=== PATIENT | female | born 1940 | race Caucasian/White ===

== ENCOUNTER 2016-09-29 11:04 | Observation (INO) ==
[2016-09-29] MEDS ORDERED: Ondansetron ODT 4 MG TAB.RAPDIS SL ONE (11:40)
[2016-09-29] MEDS ORDERED: 0.9 % Sodium Chloride 1,000 ML IVC ONE (11:47)
[2016-09-29] MEDS ORDERED: Ondansetron 4 MG/2 ML VIAL IVP ONE (11:53)
--- NOTE | 2016-09-29 11:53 | Emergency Department Note ---
Disposition Clinical Impression: Confusion, Dizziness UTI (urinary tract infection) Qualifiers: Urinary tract infection type: acute cystitis Hematuria presence: without hematuria Qualified Code(s): N30.00 - Acute cystitis without hematuria Disposition: Home, Self-Care Condition: Good Time of Disposition: 16:48 General Adult HPI - General Chief complaint: ED Dizziness Stated complaint: N/V dizziness Time Seen by Provider: 09/29/16 11:19 Source: patient Limitations: no limitations Nursing Notes Reviewed: Yes Vital Signs Reviewed: Yes - History of Present Illness HPI Narrative: Patient states this morning she got up went to the bathroom came back inside on her bed and noticed that she was dizzy. She describes dizziness as feeling like she is going to pass out. She has no other complaints at this time. Denies any chest pain or shortness of breath. Pain Scale: 0 - Related Data Allergies Allergy/AdvReac Type Severity Reaction Status Date / Time No Known Allergies Allergy Verified 09/29/16 11:16 All systems ED: reviewed and negative except as stated. Constitutional: Denies: fever, chills Cardiovascular: Denies: chest pain, palpitations, dyspnea on exertion, syncope Respiratory: Denies: cough, dyspnea, wheezes Gastrointestinal: Denies: abdominal pain, nausea, vomiting, diarrhea, hematemesis, melena, hematochezia Genitourinary: Denies: urgency, dysuria, frequency, hematuria Musculoskeletal: Denies: back pain, neck pain Integumentary: Denies: rash, abrasion Neurological: Reports: vertigo, other (Feels like she is going to pass out.). Denies: headache, weakness Past Medical History - Past Medical History Attestation: Yes The following information was validated with the patient. Medical history: Reports: hyperlipidemia, hypertension Psychiatric history: Reports: no psych history - Social History Smoking Status: Never smoker Smokeless Tobacco Status: No Alcohol use: Reports: occasionally Drug use: Reports: none Physical Exam - General Limitations: no limitations General appearance: alert, in no apparent distress - Head Head exam: atraumatic, normocephalic, normal inspection - Eye Eye exam: Present: normal appearance, PERRL, EOMI. Absent: scleral icterus - ENT ENT exam: normal exam, normal oropharynx, mucous membranes moist - Neck Neck exam: Present: normal inspection, full ROM, trachea midline. Absent: tenderness, meningismus, lymphadenopathy - Chest Chest inspection: Present: normal inspection, symmetric chest wall rise. Absent : tenderness - Respiratory Respiratory exam: Present: normal lung sounds bilaterally. Absent: respiratory distress - Cardiovascular Cardiovascular exam: Present: regular rate, normal rhythm, normal heart sounds - Abdominal Exam Abdominal exam: Present: soft, Non-Tender, normal bowel sounds - Extremities Exam Extremities exam: Present: normal inspection, full ROM, normal capillary refill. Absent: tenderness, pedal edema - Back Exam Back exam: Present: normal inspection, full ROM. Absent: tenderness, CVA tenderness (R), CVA tenderness (L) - Neurological Exam Neurological exam: Present: alert, CN II-XII intact, other (Slightly confused). Absent: motor sensory deficit - Psychiatric Psychiatric exam: Present: normal affect, normal mood - Skin Skin exam: Present: warm, dry, intact, normal color. Absent: rash, cyanosis, diaphoresis Course Course Narrative: Patient reporting dizziness since this morning. She states that she got up out of bed and was in her closet went to the bathroom when she got up and came back and sat down on her bed she is very dizzy. She describes the dizzy sensation as being lightheaded. She denies the room spinning. She denies any shortness of breath or chest pain. She does report nausea and vomiting. She is diaphoretic at this time. She is not very conversational on exam. Lung sounds are clear heart sounds are normal. Her abdomen is soft and nontender. I do not appreciate any edema to her extremities. Patient has a history of angioplasty several years ago. We will give patient a fluid bolus and get a kylpf-eg-rvel glucose she is here. We will also get an EKG and scan her head family advises increasing confusion over the past week. They stated that she does have a history of forgetfulness but it seems to be worse. We also get labs. - Reevaluation(s) Reevaluation #1: Patient reassessed. She is sleeping comfortably in bed. I am able to speak with the daughter at this time. The daughter says over the past 2 years patient and the patient's had become increasingly confused. She states there is no formal diagnosis of dementia or Alzheimer's. She states that now she is able to think about it yesterday she thinks the patient may have gotten warm. States she has not been handling heat very well recently. She is concerned this is possibly the reason for her increased confusion and dizziness today. Daughter states that she has noticed that today she is changed her story 3 times with different providers in the room. We are still waiting on a UA. Her head CT was normal her chest x-ray was normal. Her lab work is basically normal. Time: 13:58 Reevaluation #2: Patient has a UTI. We will treat her for this. We will admit for increased confusion UTI and dizziness. Patient and family are agreeable to this. Time: 16:47 - Consultations Consultation #1: Dr. Butt accepted patient in stable condition. Time: 15:59 Vital Signs Temperature 97.4 F L 09/29/16 11:13 Pulse Rate 112 09/29/16 11:13 Respiratory Rate 18 09/29/16 11:13 Blood Pressure 152/105 09/29/16 11:13 O2 Sat by Pulse Oximetry 96 09/29/16 11:13 Temperature 97.4 F L 09/29/16 11:13 Pulse Rate 68 09/29/16 15:13 Respiratory Rate 16 09/29/16 15:13 Blood Pressure 142/75 09/29/16 15:13 O2 Sat by Pulse Oximetry 96 09/29/16 15:13 Oxygen Delivery Oxygen Delivery Room Air Medical Decision Making - Medical Records Medical records reviewed: Yes I reviewed the patient's medical records. - Lab Data Lab results reviewed: Yes I reviewed the patient's lab results. Result diagrams: 09/29/16 11:59 09/29/16 11:59 Lab Results 09/29/16 09/29/16 09/29/16 Range/Units 11:57 11:59 11:59 WBC 5.6 (4.3-11.1) K/mcL RBC 4.75 (3.82-4.97) M/mcL Hgb 15.2 (11.5-15.4) g/dL Hct 44.4 (35.3-44.9) % MCV 93.5 (83.0-100.0) fL MCH 32.0 (28.0-33.3) pg MCHC 34.2 (31.6-35.5) g/dL RDW 12.0 (11.5-14.5) % Plt Count 198 (140-400) K/mcL MPV 9.5 (9.4-12.4) fL Immature Gran % 0.4 (0-4) % Seg Neutrophils % 81.0 % Lymphocytes % 11.4 % Monocytes % 6.2 % Eosinophils % 0.5 % Basophils % 0.5 % Neutrophils # 4.6 (1.6-8.9) K/mcL Lymphocytes # 0.6 (0.6-4.6) K/mcL Monocytes # 0.4 (0.0-1.3) K/mcL Eosinophils # 0.0 (0.0-0.6) K/mcL Basophils # 0.0 (0.0-0.2) K/mcL Sodium 139 (136-145) mEq/L Potassium 3.7 (3.5-4.5) mEq/L Chloride 106 (98-109) mEq/L Carbon Dioxide 24 (19-29) mEq/L BUN 17 (7-20) mg/dL Creatinine 0.83 (0.57-1.11) mg/dL Est GFR ( Amer) > 60 (> 60) Est GFR (Non-Af Amer) > 60 (> 60) BUN/Creatinine Ratio 20 (6-26) Glucose 144 H (70-99) mg/dL POC Glucose 132 H (58-89) Calculated Osmolality 292 (280-300) Calcium 9.4 (8.6-10.8) mg/dL Total Bilirubin 1.0 (0.2-1.2) mg/dL AST 19 (5-34) Units/L ALT 15 (0-55) Units/L Alkaline Phosphatase 165 H (38-126) Units/L Troponin I (0-0.03) ng/mL Serum Total Protein 7.8 (6.0-8.3) g/dL Albumin 4.1 (3.5-5.0) g/dL Globulin 3.7 H (2.4-3.5) g/dL Albumin/Globulin Ratio 1.1 (1.1-2.2) Urine Color (Yellow) Urine Clarity (Clear) Urine pH (5.0-8.0) pH Units Ur Specific [place] (1.010-1.025) Urine Protein (Neg-Trace) mg/dL Urine Glucose (UA) (Normal) mg/dL Urine Ketones (Negative) mg/dL Urine Blood (Negative) Urine Nitrite (Negative) Urine Bilirubin (Negative) Urine Urobilinogen (Normal) mg/dL Ur Leukocyte Esterase (Negative) Urine Microscopic RBC (0-3) per hpf Urine Microscopic WBC (0-3) per hpf Ur Squamous Epith Cells (None-Few) per lpf Urine Bacteria (None-Few) per hpf Hyaline Casts (None-Few) per lpf Ur Culture Indicated? (NO) 09/29/16 09/29/16 Range/Units 11:59 15:00 WBC (4.3-11.1) K/mcL RBC (3.82-4.97) M/mcL Hgb (11.5-15.4) g/dL Hct (35.3-44.9) % MCV (83.0-100.0) fL MCH (28.0-33.3) pg MCHC (31.6-35.5) g/dL RDW (11.5-14.5) % Plt Count (140-400) K/mcL MPV (9.4-12.4) fL Immature Gran % (0-4) % Seg Neutrophils % % Lymphocytes % % Monocytes % % Eosinophils % % Basophils % % Neutrophils # (1.6-8.9) K/mcL Lymphocytes # (0.6-4.6) K/mcL Monocytes # (0.0-1.3) K/mcL Eosinophils # (0.0-0.6) K/mcL Basophils # (0.0-0.2) K/mcL Sodium (136-145) mEq/L Potassium (3.5-4.5) mEq/L Chloride (98-109) mEq/L Carbon Dioxide (19-29) mEq/L BUN (7-20) mg/dL Creatinine (0.57-1.11) mg/dL Est GFR ( Amer) (> 60) Est GFR (Non-Af Amer) (> 60) BUN/Creatinine Ratio (6-26) Glucose (70-99) mg/dL POC Glucose (58-89) Calculated Osmolality (280-300) Calcium (8.6-10.8) mg/dL Total Bilirubin (0.2-1.2) mg/dL AST (5-34) Units/L ALT (0-55) Units/L Alkaline Phosphatase (38-126) Units/L Troponin I 0.01 (0-0.03) ng/mL Serum Total Protein (6.0-8.3) g/dL Albumin (3.5-5.0) g/dL Globulin (2.4-3.5) g/dL Albumin/Globulin Ratio (1.1-2.2) Urine Color Yellow (Yellow) Urine Clarity Cloudy A (Clear) Urine pH 6.0 (5.0-8.0) pH Units Ur Specific [place] 1.023 (1.010-1.025) Urine Protein Negative (Neg-Trace) mg/dL Urine Glucose (UA) Normal (Normal) mg/dL Urine Ketones Negative (Negative) mg/dL Urine Blood Negative (Negative) Urine Nitrite Negative (Negative) Urine Bilirubin Negative (Negative) Urine Urobilinogen Normal (Normal) mg/dL Ur Leukocyte Esterase Small H (Negative) Urine Microscopic RBC 3-5 H (0-3) per hpf Urine Microscopic WBC 5-15 H (0-3) per hpf Ur Squamous Epith Cells Many H (None-Few) per lpf Urine Bacteria None Seen (None-Few) per hpf Hyaline Casts None Seen (None-Few) per lpf Ur Culture Indicated? YES A (NO) - Radiology Data Radiology results reviewed: Yes I reviewed the patient's radiology results. Chest X-Ray 09/29/16 11:47 IMPRESSION: Stable appearing chest without acute cardiopulmonary process. D/ / Isidro Alexandre MD / Isidro Alexandre MD Interpreting Provider: Isidro Alexandre MD Head CT 09/29/16 13:15 IMPRESSION: Stable appearance of the brain without acute intracranial process identified. D/ / Aba Valladares MD / Aba Valladares MD Interpreting Provider: Aba Valladares MD - EKG Data EKG #1 EKG attestation: Yes I reviewed and interpreted this EKG. EKG results narrative: Sinus rhythm with a first-degree AV block. Ventricular rate is 91. TX interval is 212. QRS duration is 84. QT is 380. QTC is 428. No signs of acute ischemia. No significant change from previous EKG dated March 31 2007 , however the first-degree block is new. Attestation Statement - Attestation Attestation: I examined this patient and my medical decision-making was reviewed with the PROGRAM ASSOCIATE/PA/Advanced Practice Nurse/Resident Physician. I agree with the documented findings, disposition and treatment plan as described except to the extent set forth below. Patient emergency department dizziness. Sudden onset after sitting on her bed after she been to the bathroom. Describes it as feeling she is going to pass out. No chest pain. No palpitations. No fever. Family states she has been confused as well. Patient neurologically intact on examination. No nystagmus. EOMs intact. Moving all extremities. Ambulatory. Plan. Patient with a few white blood cells in her urine. Labs unremarkable. CT unremarkable as well. Patient at approximately mental status and dizziness.
[2016-09-29 12:05] LABS: Basophils % 0.5 %; Eosinophils % 0.5 %; Hematocrit 44.4 % (35.3-44.9); Hemoglobin 15.2 g/dL (11.5-15.4); Immature Granulocytes % 0.4 % (0-4); Lymphocytes # 0.6 K/mcL (0.6-4.6); Lymphocytes % 11.4 %; Mean Corpuscular HGB Conc 34.2 g/dL (31.6-35.5); Mean Corpuscular Volume 93.5 fL (83.0-100.0); Mean Platelet Volume 9.5 fL (9.4-12.4); Monocytes # 0.4 K/mcL (0.0-1.3); Monocytes % 6.2 %; Neutrophils # 4.6 K/mcL (1.6-8.9); Platelet Count 198 K/mcL (140-400); Red Blood Count 4.75 M/mcL (3.82-4.97)
[2016-09-29 12:19] LABS: Alanine Aminotransferase 15 Units/L (0-55); Albumin 4.1 g/dL (3.5-5.0); Albumin/Globulin Ratio 1.1 (1.1-2.2); Alkaline Phosphatase 165 Units/L (38-126); Aspartate Amino Transferase 19 Units/L (5-34); BUN/Creatinine Ratio 20 (6-26); Blood Urea Nitrogen 17 mg/dL (7-20); Calcium 9.4 mg/dL (8.6-10.8); Carbon Dioxide 24 mEq/L (19-29); Chloride 106 mEq/L (98-109); Globulin 3.7 g/dL (2.4-3.5); Glucose 144 mg/dL (70-99); Osmolality,Calculated 292 (280-300); Potassium 3.7 mEq/L (3.5-4.5); Sodium 139 mEq/L (136-145); Total Protein 7.8 g/dL (6.0-8.3); eGFR For African Americans > 60 (> 60); eGFR For Non-African Americans > 60 (> 60)
[2016-09-29 15:19] LABS: Bilirubin,Urine Negative (Negative); Blood,Urine Negative (Negative); Clarity,Urine Cloudy (Clear); Color,Urine Yellow (Yellow); Glucose,Urine (UA) Normal (Normal); Ketones,Urine Negative (Negative); Leukocyte Esterase,Urine Small (Negative); Nitrite,Urine Negative (Negative); Protein,Urine Negative (Neg-Trace); Specific Gravity,Urine 1.023 (1.010-1.025); Urobilinogen,Urine Normal (Normal)
[2016-09-29 15:21] LABS: Bacteria,Urine None Seen per hpf (None-Few); Hyaline Casts,Urine None Seen per lpf (None-Few); Squamous Epithelial Cell,Urine Many per lpf (None-Few)
[2016-09-29] MEDS ORDERED: Nitroglycerin 0.4 MG TAB.SUBL SL PRN (16:30)
[2016-09-29] MEDS ORDERED: 0.9 % Sodium Chloride 1,000 ML IVC SCH (16:30)
--- NOTE | 2016-09-29 16:33 | Internal Med History&Physical ---
Date of Encounter: 09/29/16 Time of Encounter: 16:31 Assessment and Plan (1) Urinary tract infection Current visit: Yes Status: Acute Questionable urinary tract infection. urine samples contaminated given her symptoms will start the patient on ceftriaxone 1 g daily. Check urine culture Qualifiers: Qualified Code(s): N39.0 - Urinary tract infection, site not specified (2) Cognitive impairment Current visit: Yes Status: Acute Patient has been having cognitive decline for the past 2 years. Family notice decline in short-term memory. Suspect dementia. (3) CAD (coronary artery disease) Current visit: Yes Status: Acute History of coronary disease status post balloon angioplasty. She is an aspirin. Continue Qualifiers: Qualified Code(s): I25.10 - Atherosclerotic heart disease of [place] coronary artery without angina pectoris Internal Medicine - H&P: HPI Chief complaint: confusion History of present illness: Ms. Akhtar is a 75 year old female with history of coronary artery disease status post balloon angioplasty, presents to the emergency room today with a multitude of symptoms. Patient has problems with short-term memory at baseline for the past 2 years. Today patient was noted to be weaker than usual, dizzy, more confused in addition to retching and dry heaving. Work up in the emergency room shows questionable urine tract infection. Patient denies any focal upper or lower extremity weakness tingling or numbness in any extremity facial symmetry or speech slenderness. No fevers chills. No back pain or tenderness. No neck pain or stiffness. No chest pain. No call for expectoration Past Med Surg Social Fam HX - Past Medical History Medical history: hyperlipidemia, hypertension Psychiatric history: no psych history - Social History Smoking Status: Never smoker Smokeless Tobacco Status: No Alcohol use: occasionally Drug use: none Internal Medicine - H&P: Meds Aspirin Enteric Coated [Aspirin EC] 81 mg PO DAILY 09/29/16 [History] Atenolol [Tenormin] 50 mg PO DAILY 09/29/16 [History] Nitroglycerin [Nitrostat] 0.4 mg SL Q5M PRN 09/29/16 [History] Allergies No Known Allergies Allergy (Verified 09/29/16 11:16) All Systems PM: A 10-system review of systems was performed and is negative for pertinent findings except as documented above in the HPI. Review of systems: 10 point review of systems is negative except for HPI. - Constitutional Vitals: Temp Pulse Resp BP Pulse Ox 97.4 F L 68 16 142/75 96 09/29/16 11:13 09/29/16 15:13 09/29/16 15:13 09/29/16 15:13 09/29/16 15:13 Exam: Gen.: patient is alert oriented to self and place only. Cardiac: normal S1 S2 no additional sounds chest: Diminished air entry in the right base abdomen: soft nontender nondistended lower extremity: lax calf muscles. Neuro: No focal deficits. Internal Med - H&P Results - Labs CBC & Chem 7: 09/29/16 11:59 09/29/16 11:59 Labs: Short CBC 09/29/16 Range/Units 11:59 WBC 5.6 (4.3-11.1) K/mcL Hgb 15.2 (11.5-15.4) g/dL Hct 44.4 (35.3-44.9) % Plt Count 198 (140-400) K/mcL Neutrophils # 4.6 (1.6-8.9) K/mcL BMP 09/29/16 11:59 Sodium 139 Potassium 3.7 Chloride 106 Carbon Dioxide 24 BUN 17 Creatinine 0.83 Glucose 144 H Calcium 9.4 Cardiac Enzymes 09/29/16 Range/Units 11:59 Troponin I 0.01 (0-0.03) ng/mL Liver Function 09/29/16 Range/Units 11:59 Total Bilirubin 1.0 (0.2-1.2) mg/dL AST 19 (5-34) Units/L ALT 15 (0-55) Units/L Alkaline Phosphatase 165 H (38-126) Units/L Albumin 4.1 (3.5-5.0) g/dL Urine 09/29/16 Range/Units 15:00 Urine Color Yellow (Yellow) Urine Clarity Cloudy A (Clear) Urine pH 6.0 (5.0-8.0) pH Units Ur Specific [place] 1.023 (1.010-1.025) Urine Protein Negative (Neg-Trace) mg/dL Urine Glucose (UA) Normal (Normal) mg/dL - Impressions ITS Impressions Chest X-Ray 09/29/16 11:47 IMPRESSION: Stable appearing chest without acute cardiopulmonary process. D/ / Isidro Alexandre MD / Isdiro Alexandre MD Interpreting Provider: Isidro Alexandre MD Head CT 09/29/16 13:15 IMPRESSION: Stable appearance of the brain without acute intracranial process identified. D/ / Aba Valladares MD / Aba Valladares MD Interpreting Provider: Aba Valladares MD
--- NOTE | 2016-09-29 17:29 | Electrocardiograph Report ---
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
[2016-09-29] MEDS: *HR* Heparin 5,000 UNIT/ML VIAL SQ SCH (18:19)
[2016-09-29] MEDS ORDERED: Ondansetron 4 MG/2 ML VIAL IVP PRN (19:40)
[2016-09-30] MEDS ORDERED: Acetaminophen 325 MG TABLET PO PRN (00:48)
[2016-09-30] MEDS: *HR* Heparin 5,000 UNIT/ML VIAL SQ SCH (06:04)
[2016-09-30 06:12] LABS: Basophils % 0.2 %; Eosinophils % 0.5 %; Hematocrit 37.9 % (35.3-44.9); Immature Granulocytes % 0.2 % (0-4); Lymphocytes % 22.4 %; Mean Corpuscular HGB Conc 33.5 g/dL (31.6-35.5); Mean Corpuscular Hemoglobin 31.5 pg (28.0-33.3); Mean Platelet Volume 9.7 fL (9.4-12.4); Monocytes # 0.4 K/mcL (0.0-1.3); Monocytes % 9.1 %; Platelet Count 196 K/mcL (140-400); Red Blood Count 4.03 M/mcL (3.82-4.97); Red Cell Distribution Width 12.1 % (11.5-14.5); Segmented Neutrophils % 67.6 %
[2016-09-30 06:15] LABS: Hemoglobin 12.7 g/dL (11.5-15.4)
[2016-09-30 06:31] LABS: BUN/Creatinine Ratio 19 (6-26); Blood Urea Nitrogen 13 mg/dL (7-20); Calcium 8.7 mg/dL (8.6-10.8); Carbon Dioxide 23 mEq/L (19-29); Chloride 109 mEq/L (98-109); Glucose 95 mg/dL (70-99); Magnesium 1.8 mg/dL (1.6-2.6); Osmolality,Calculated 290 (280-300); Potassium 3.8 mEq/L (3.5-4.5); Sodium 140 mEq/L (136-145); eGFR For African Americans > 60 (> 60); eGFR For Non-African Americans > 60 (> 60)
[2016-09-30] MEDS ORDERED: Famotidine 20 MG TABLET PO SCH (09:00)
[2016-09-30] MEDS ORDERED: Aspirin Enteric Coated 81 MG Tablet PO SCH (09:00)
[2016-09-30 11:17] VITALS: BP 144/71
--- NOTE | 2016-09-30 12:03 | Discharge Summary ---
Date of Encounter: 09/30/16 Time of Encounter: 12:01 - Discharge Diagnosis (1) Urinary tract infection Priority: Primary Status: Acute Comments: uncomplicated Qualifiers: Urinary tract infection type: acute cystitis Hematuria presence: without hematuria Qualified Code(s): N30.00 - Acute cystitis without hematuria (2) Cognitive impairment Priority: Secondary Status: Acute (3) CAD (coronary artery disease) Priority: Secondary Status: Acute Comments: stable Qualifiers: Coronary Disease-Associated Artery/Lesion type: [place] artery [place] vs. transplanted heart: [place] heart Associated angina: without angina Qualified Code(s): I25.10 - Atherosclerotic heart disease of [place] coronary artery without angina pectoris - Discharge Medications Prescriptions: Cephalexin [Keflex] 500 mg PO TID #10 capsule Home Medications: Aspirin Enteric Coated [Aspirin EC] 81 mg PO DAILY 09/29/16 [History] Atenolol [Tenormin] 50 mg PO DAILY 09/29/16 [History] Nitroglycerin [Nitrostat] 0.4 mg SL Q5M PRN 09/29/16 [History] Cephalexin [Keflex] 500 mg PO TID #10 capsule 09/30/16 [Rx] Allergies/Adverse Reactions: Allergies No Known Allergies Allergy (Verified 09/29/16 11:16) Date of admission: 09/29/16 16:38 Primary care physician: Edna Siu CNP Consults: None Discharging clinician: Grzegorz Butt Anticipated date of discharge: 09/30/16 - Patient Status Disposition: Home, Self-Care Condition: Fair Functional capacity at discharge: independent ambulation Overall status at discharge: patient is progressing back to baseline - Discharge Instructions Instructions: Cephalexin (By mouth), Urinary Tract Infection in Women (DC) Follow Up With: Edna Siu CNP [Primary Care Provider] - 10/04/16 1:00 pm - Diet and Activity Activity: as per physical therapy Diet: advance to your usual diet Interval History: Patient was admitted yesterday because of concern of confusion. It seems according to discussion with the family that patient's cognitive status has been declining over the past 2 years patient has been having problems was short- term memory suspect dementia. She was having questionable UTI has been admitted to hospital treated with ceftriaxone. She will be getting Keflex undischarged for 3 days for uncomplicated UTI. Patient is pleasantly confused. Suspect the diagnosis of dementia. Outpatient follow-up. Patient has good support at home Hospital course: Ms. Akhtar is a 75 year old female who presented to the emergency room to yesterday with the main complaint of confusion. It seems according to family that for the past 2 years patient has been having decline in her cognitive status. Patient was found to have a suspected UTI. She was started on ceftriaxone. Patient likely has an underlying diagnosis of dementia. Patient is pleasantly confused to play some time. Will give the patient three-day prescription of Keflex. Outpatient follow-up with PCP. - Time Spent with Patient Total time spent providing and/or coordinating discharge services: Less than 30 minutes - Constitutional Vitals: Temp Pulse Resp BP Pulse Ox 99.0 F 62 16 144/71 98 09/30/16 11:15 09/30/16 11:15 09/30/16 11:15 09/30/16 11:15 09/30/16 11:15 Exam: Gen.: patient is alert pleasantly confused. Cardiac: normal S1 S2 no additional sounds or murmurs chest: fair air entry. no active wheezing. No crackles or bronchial breathing. abdomen: soft nontender nondistended normal bowel sounds neuro: no focal deficit
--- NOTE | 2016-09-30 17:39 | Electrocardiograph Report ---
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
== END 2016-09-30 14:55 | disposition home or self-care (01) ==
LOC: 3BNU 11:04 → EMEROO 11:04 → 3BNU 17:29
PROVIDERS: ADMIT Hospitalist; ATTEND Nurse Practitioner Family